=== PATIENT | female | born 1990 | race Two or more races ===

== ENCOUNTER 2018-05-19 14:08 | Emergency (ER) | payer OTHER ==
[2018-05-19] MEDS ORDERED: NS 1,000 ML IV ONE (15:02)
[2018-05-19] MEDS ORDERED: KETOROLAC 30 MG/1 ML SDV IVP ONE (15:02)
[2018-05-19] MEDS ORDERED: ONDANSETRON 4 MG/2 ML VIAL IVP ONE (15:02)
--- NOTE | 2018-05-19 15:05 | EDPHY ---
H & P Stated Complaint: ABD PAIN X 4 DAYS Time Seen by Provider: 05/19/18 14:55 HPI/ROS: CHIEF COMPLAINT: Nausea vomiting diarrhea HISTORY OF PRESENT ILLNESS: Patient is a 27-year-old a female from [place] who was working as an [employer] here. On Thursday and Thursday she developed nausea vomiting and diarrhea. She states that she vomited multiple times. She had very small amounts of blood in her stool. Her symptoms resolved Thursday and Thursday and then returned yesterday evening. She has not had a fever. She denies risk of . No urinary symptoms. No vaginal symptoms. No surgical history. She does complain of mild pain and cramping that is diffuse nonfocal. Severity: Moderate Modifying factors: Seem to relapse REVIEW OF SYSTEMS: Constitutional: denies: chills, fever, recent illness, recent injury EENTM: denies: blurred vision, double vision, nose congestion Respiratory: denies: cough, shortness of breath Cardiac: denies: chest pain, irregular heart rate, lightheadedness, palpitations Gastrointestinal/Abdominal: See HPI Genitourinary: denies: dysuria, frequency, hematuria, pain Musculoskeletal: denies: joint pain, muscle pain Skin: denies: lesions, rash, jaundice, bruising Neurological: denies: headache, numbness, paresthesia, tingling, dizziness, weakness Hematologic/Lymphatic: denies: blood clots, easy bleeding, easy bruising Immunologic/allergic: denies: HIV/AIDS, transplant 10 systems reviewed and negative except as noted EXAM: GENERAL: Well-appearing, well-nourished and in no acute distress. HEAD: Atraumatic, normocephalic. EYES: Pupils equal round and reactive to light, extraocular movements intact, sclera anicteric, conjunctiva are normal. ENT: TMs normal, nares patent, oropharynx clear without exudates. Moist mucous membranes. NECK: Normal range of motion, supple without lymphadenopathy or JVD. LUNGS: Breath sounds clear to auscultation bilaterally and equal. No wheezes rales or rhonchi. HEART: Regular rate and rhythm without murmurs, rubs or gallops. ABDOMEN: Soft, nontender, normoactive bowel sounds. No guarding, no rebound. No masses appreciated. BACK: No CVA tenderness, no spinal tenderness, step-offs or deformities EXTREMITIES: Normal range of motion, no pitting or edema. No clubbing or cyanosis. NEUROLOGICAL: Cranial nerves II through XII grossly intact. Normal speech, normal gait. 5/5 strength, normal movement in all extremities, normal sensation , normal reflexes PSYCH: Normal mood, normal affect. SKIN: Warm, dry, normal turgor, no visible rashes or lesions. Source: Patient Exam Limitations: No limitations - Medical/Surgical History Hx Asthma: No Hx Chronic Respiratory Disease: No Hx Diabetes: No Hx Cardiac Disease: No Hx Renal Disease: No Hx Cirrhosis: No Hx Alcoholism: No Hx HIV/AIDS: No Hx Splenectomy or Spleen Trauma: No Other PMH: denies - Family History Significant Family History: No pertinent family hx - Social History Smoking Status: Never smoked Alcohol Use: None Constitutional: Initial Vital Signs Temperature (C) 37.2 C 05/19/18 14:13 Heart Rate 71 05/19/18 14:13 Respiratory Rate 16 05/19/18 14:13 Blood Pressure 107/88 H 05/19/18 14:13 O2 Sat (%) 100 05/19/18 14:13 O2 Delivery Mode Room Air Allergies/Adverse Reactions: No Known Allergies Allergy (Unverified 05/19/18 14:13) Home Medications: Medication Instructions Recorded Doxylamine Succinate/Vit B6 2 each PO DAILY #7 tablet. 05/19/18 [Ester Ascencio 10-10 mg Tablet] Medical Decision Making - Diagnostics Imaging Results: Imaging Impressions Obstetrics Ultrasound 05/19/18 16:03 Impression: 1. There are 2 fluid-filled structures adjacent to the canal near the uterine fundus, the smallest of which is rounded and measures up to 2.3 mm. This may represent an early gestational sac. The other structure is more oblong in appearance. Recommend serial beta hCGs and short-term follow-up imaging to ensure viable . 2. Likely corpus luteum cyst in the right ovary. 3. Trace free fluid in the pelvis. Findings and recommendations discussed with CHARO OLIVIA at 1715 hour, 2018. Imaging: Discussed imaging studies w/ parts fabricator Radiologist ED Course/Re-evaluation: 3:40 p.m. initially the patient told us that there was no chance she was and then she had her last menstrual period about 1 month ago. Her test however came back positive. With the solar sales representative and assessor I asked her more specifically and she does admit to having intercourse a few weeks ago. She is not exactly sure when. Will send a quantification level. She is not having any of vaginal cramping or bleeding. She states that her menses 1 month ago was normal. She has not been traveling. She arrived here in February. 4:12 p.m. the patient continues to have pain. Will treat with morphine. She asked about options for . I will obtain ultrasound to rule out obvious ectopic but otherwise have her follow up with OBGYN for repeat testing and discussion about options. 5:20 p.m. we discussed the patient's ultrasound. She will follow up with OBGYN in 2 days for repeat quant and likely ultrasound. She will then discuss with them options for versus keeping the . We discussed indications for returning such as fever, intractable pain or vomiting or bleeding. Abdominal exam remains benign. I discussed this plan with Dr. Aguirre who agrees and will follow up. Differential Diagnosis: Partial list of the Differential diagnosis considered include but were not limited to; intrauterine , ectopic , gastroenteritis and although unlikely based on the history and physical exam, I also considered appendicitis, biliary disease volvulus. - Data Points Laboratory Results: Laboratory Results 05/19/18 14:46 05/19/18 14:46 05/19/18 05/19/18 05/19/18 15:10 14:46 14:46 WBC RBC Hgb Hct MCV MCH MCHC RDW Plt Count MPV Neut % (Auto) Lymph % (Auto) [place] % (Auto) Eos % (Auto) Baso % (Auto) Nucleat RBC Rel Count Absolute Neuts (auto) Absolute Lymphs (auto) Absolute Monos (auto) Absolute Eos (auto) Absolute Basos (auto) Absolute Nucleated RBC Immature Gran % Immature Gran # Sodium Potassium Chloride Carbon Dioxide Anion Gap BUN Creatinine Estimated GFR Glucose Calcium Total Bilirubin Conjugated Bilirubin Unconjugated Bilirubin AST ALT Alkaline Phosphatase Total Protein Albumin Lipase Beta HCG, Qual POSITIVE Beta HCG, Quant 503.80 mIU/mL H mIU/mL (0.00-4.83) Urine Color YELLOW Urine Appearance MODERATELY TURBID Urine pH 7.0 (5.0-7.5) Ur Specific [place] 1.019 (1.002-1.030) Urine Protein NEGATIVE (NEGATIVE) Urine Ketones 1+ H (NEGATIVE) Urine Blood NEGATIVE (NEGATIVE) Urine Nitrate NEGATIVE (NEGATIVE) Urine Bilirubin NEGATIVE (NEGATIVE) Urine Urobilinogen NEGATIVE EU EU (0.2-1.0) Ur Leukocyte Esterase NEGATIVE (NEGATIVE) Urine RBC NONE SEEN /hpf /hpf (0-3) Urine WBC 1-3 /hpf /hpf (0-3) Ur Epithelial Cells 2+ /lpf H /lpf (NONE-1+) Urine Bacteria TRACE /hpf H /hpf (NONE SEEN) Urine Mucus TRACE /lpf /lpf (NONE-1+) Urine Glucose NEGATIVE (NEGATIVE) 05/19/18 05/19/18 14:46 14:46 WBC 9.91 10^3/uL H 10^3/uL (3.80-9.50) RBC 4.09 10^6/uL L 10^6/uL (4.18-5.33) Hgb 12.2 g/dL L g/dL (12.6-16.3) Hct 36.3 % L % (38.0-47.0) MCV 88.8 fL fL (81.5-99.8) MCH 29.8 pg pg (27.9-34.1) MCHC 33.6 g/dL g/dL (32.4-36.7) RDW 13.4 % % (11.5-15.2) Plt Count 269 10^3/uL 10^3/uL (150-400) MPV 10.6 fL fL (8.7-11.7) Neut % (Auto) 70.0 % % (39.3-74.2) Lymph % (Auto) 24.8 % % (15.0-45.0) [place] % (Auto) 4.4 % L % (4.5-13.0) Eos % (Auto) 0.3 % L % (0.6-7.6) Baso % (Auto) 0.2 % L % (0.3-1.7) Nucleat RBC Rel Count 0.0 % % (0.0-0.2) Absolute Neuts (auto) 6.93 10^3/uL H 10^3/uL (1.70-6.50) Absolute Lymphs (auto) 2.46 10^3/uL 10^3/uL (1.00-3.00) Absolute Monos (auto) 0.44 10^3/uL 10^3/uL (0.30-0.80) Absolute Eos (auto) 0.03 10^3/uL 10^3/uL (0.03-0.40) Absolute Basos (auto) 0.02 10^3/uL 10^3/uL (0.02-0.10) Absolute Nucleated RBC 0.00 10^3/uL 10^3/uL (0-0.01) Immature Gran % 0.3 % % (0.0-1.1) Immature Gran # 0.03 10^3/uL 10^3/uL (0.00-0.10) Sodium 133 mEq/L L mEq/L (135-145) Potassium 3.5 mEq/L mEq/L (3.5-5.2) Chloride 103 mEq/L mEq/L (97-110) Carbon Dioxide 20 mEq/l L mEq/l (22-31) Anion Gap 10 mEq/L mEq/L (6-14) BUN 6 mg/dL L mg/dL (7-23) Creatinine 0.6 mg/dL mg/dL (0.6-1.0) Estimated GFR > 60 Glucose 97 mg/dL mg/dL (70-100) Calcium 9.3 mg/dL mg/dL (8.5-10.4) Total Bilirubin 0.8 mg/dL mg/dL (0.1-1.4) Conjugated Bilirubin 0.2 mg/dL mg/dL (0.0-0.5) Unconjugated Bilirubin 0.6 mg/dL mg/dL (0.0-1.1) AST 20 IU/L IU/L (14-46) ALT 16 IU/L IU/L (9-52) Alkaline Phosphatase 62 IU/L IU/L (38-126) Total Protein 8.1 g/dL g/dL (6.3-8.2) Albumin 4.6 g/dL g/dL (3.5-5.0) Lipase 110 IU/L IU/L (23-300) Beta HCG, Qual Beta HCG, Quant Urine Color Urine Appearance Urine pH Ur Specific [place] Urine Protein Urine Ketones Urine Blood Urine Nitrate Urine Bilirubin Urine Urobilinogen Ur Leukocyte Esterase Urine RBC Urine WBC Ur Epithelial Cells Urine Bacteria Urine Mucus Urine Glucose Medications Given: Discontinued Medications Acetaminophen (Tylenol) 1,000 mg PO EDNOW ONE Stop: 05/19/18 17:24 Last Admin: 05/19/18 17:26 Dose: 1,000 mg Sodium Chloride (Ns) 1,000 mls @ 0 mls/hr IV EDNOW ONE; Wide Open PRN Reason: Protocol Stop: 05/19/18 15:03 Last Admin: 05/19/18 15:09 Dose: 1,000 mls Ketorolac Tromethamine (Toradol) 15 mg IVP EDNOW ONE Stop: 05/19/18 15:03 Last Admin: 05/19/18 15:09 Dose: 15 mg Morphine Sulfate (Morphine) 6 mg IVP EDNOW ONE Stop: 05/19/18 16:11 Last Admin: 05/19/18 16:16 Dose: 4 mg Ondansetron HCl (Zofran) 4 mg IVP EDNOW ONE Stop: 05/19/18 15:03 Last Admin: 05/19/18 15:09 Dose: 4 mg Departure - Departure Disposition: Home, Routine, Self-Care Clinical Impression: Qualifiers: Weeks of gestation: less than 8 weeks Qualified Code(s): Z3A.01 - Less than 8 weeks gestation of Condition: Fair Instructions: (ED) Additional Instructions: Follow-up with OBGYN in 2 days for repeat blood levels and evaluation. Return to the emergency department if her pain becomes severe or of continued vomiting or fever. Calvin mikayla funmilayo de seguimiento con un GINE[place]GO en 2 mercado para repetir los niveles de frances y la evaluacin. Regrese al Departamento de Emergencia si yee dolor se vuelve nikki o si tiene vmitos continuo o fiebre. Referrals: NONE *PRIMARY CARE P,. [Primary Care Provider] - As per Instructions Joceline Aguirre MD [Medical Doctor] - 1-2 days without fail Prescriptions: Doxylamine Succinate/Vit B6 [Ester Ascencio 10-10 mg Tablet] 2 each PO DAILY #7 tablet. Print Language: Italian
[2018-05-19 15:10] LABS: PLATELET COUNT 269 10^3/uL (150-400)
[2018-05-19] MEDS ORDERED: ACETAMINOPHEN 500 MG TAB PO ONE (17:23)
[2018-05-19 17:50] VITALS: BP 114/78
== END 2018-05-19 17:50 | disposition home or self-care (01) ==
LOC: EDBD 14:08
DX: O21.9 Vomiting of pregnancy, unspecified (principal); O99.281 Endocrine, nutritional and metabolic diseases complicating pregnancy, first trimester; R19.7 Diarrhea, unspecified; E86.9 Volume depletion, unspecified; Z3A.01 Less than 8 weeks gestation of pregnancy
CPT/HCPCS: 96374; J1885; J2270; J2405

== ENCOUNTER 2018-05-21 00:15 | Emergency (ER) | payer OTHER ==
[2018-05-21] MEDS ORDERED: fentaNYL 100 MCG/2 ML INJ IVP ONE (00:47)
[2018-05-21 00:56] LABS: PLATELET COUNT 262 10^3/uL (150-400)
--- NOTE | 2018-05-21 01:50 | EDPHY ---
H & P Stated Complaint: , increasing lower abd pain, recently seen in ED Time Seen by Provider: 05/21/18 00:34 HPI/ROS: Chief Complaint: Pelvic pain HPI: 27-year-old who was recently diagnosed as being . Patient was seen here 2 days ago for abdominal pain. At that time she is noted to be with a quantitative HCG in the 500s. She had a pelvic ultrasound which did not show an IUP but there is a possible gestational sac in the uterus. She is referred for to OBGYN for follow-up. Patient states the pain is significantly worse. Is down low in deep inside. No vaginal bleeding or discharge. No fevers or chills. No nausea or vomiting. Pain is about an 8/ 10. There are no aggravating or alleviating factors. She has not yet seen OBGYN. ROS: 10 systems were reviewed and were negative except those elements noted in the HPI. PMH: Denies Social History: No smoking, no alcohol, no recreational drug use Family History: non-contributory Physical Exam: Gen: Awake, Alert, No Distress HEENT: Nose: no rhinorrhea Eyes: PERRLA, EOMI Mouth: Moist mucosa Neck: Supple, no JVD Chest: nontender, lungs clear to auscultation Heart: S1, S2 normal, no murmur Abd: Soft, moderate lower pelvic tenderness, no guarding Back: no CVA tenderness, no midline tenderness Ext: no edema, non-tender Skin: no rash Neuro: CN II-XII intact, Sensation grossly intact, Strength 5/5 in bilateral upper and lower extremities - Personal History LMP (Females 10-55): Current Tetanus Diphtheria and Acellular Pertussis (TDAP): No - Medical/Surgical History Hx Asthma: No Hx Chronic Respiratory Disease: No Hx Diabetes: No Hx Cardiac Disease: No Hx Renal Disease: No Hx Cirrhosis: No Hx Alcoholism: No Hx HIV/AIDS: No Hx Splenectomy or Spleen Trauma: No Other PMH: denies - Social History Smoking Status: Never smoked Constitutional: Initial Vital Signs Temperature (C) 36.8 C 05/21/18 00:23 Heart Rate 65 05/21/18 00:23 Respiratory Rate 19 05/21/18 00:23 Blood Pressure 128/57 H 05/21/18 00:23 O2 Sat (%) 100 05/21/18 00:23 O2 Delivery Mode Room Air Allergies/Adverse Reactions: No Known Allergies Allergy (Unverified 05/21/18 00:19) Home Medications: Medication Instructions Recorded Doxylamine Succinate/Vit B6 2 each PO DAILY #7 tablet. 05/19/18 [Ester Ascencio 10-10 mg Tablet] Medical Decision Making ED Course/Re-evaluation: Patient's HCG is has increased from 500-900. Repeat ultrasound shows a possible early IUP with no evidence of ectopic at this time but it is too early to tell. Patient's pain is resolved. She has an appointment later this morning with OBGYN. Will discharge with follow up with that appointment. Patient understands that is extremely important that she keep this appointment today. - Data Points Laboratory Results: Laboratory Results 05/21/18 00:38 05/21/18 00:38 05/21/18 05/21/18 00:38 00:38 WBC 9.13 10^3/uL 10^3/uL (3.80-9.50) RBC 4.01 10^6/uL L 10^6/uL (4.18-5.33) Hgb 12.1 g/dL L g/dL (12.6-16.3) Hct 36.4 % L % (38.0-47.0) MCV 90.8 fL fL (81.5-99.8) MCH 30.2 pg pg (27.9-34.1) MCHC 33.2 g/dL g/dL (32.4-36.7) RDW 13.3 % % (11.5-15.2) Plt Count 262 10^3/uL 10^3/uL (150-400) MPV 10.4 fL fL (8.7-11.7) Neut % (Auto) 58.2 % % (39.3-74.2) Lymph % (Auto) 33.7 % % (15.0-45.0) [place] % (Auto) 6.9 % % (4.5-13.0) Eos % (Auto) 0.7 % % (0.6-7.6) Baso % (Auto) 0.2 % L % (0.3-1.7) Nucleat RBC Rel Count 0.0 % % (0.0-0.2) Absolute Neuts (auto) 5.31 10^3/uL 10^3/uL (1.70-6.50) Absolute Lymphs (auto) 3.08 10^3/uL H 10^3/uL (1.00-3.00) Absolute Monos (auto) 0.63 10^3/uL 10^3/uL (0.30-0.80) Absolute Eos (auto) 0.06 10^3/uL 10^3/uL (0.03-0.40) Absolute Basos (auto) 0.02 10^3/uL 10^3/uL (0.02-0.10) Absolute Nucleated RBC 0.00 10^3/uL 10^3/uL (0-0.01) Immature Gran % 0.3 % % (0.0-1.1) Immature Gran # 0.03 10^3/uL 10^3/uL (0.00-0.10) Sodium 136 mEq/L mEq/L (135-145) Potassium 3.4 mEq/L L mEq/L (3.5-5.2) Chloride 107 mEq/L mEq/L (97-110) Carbon Dioxide 19 mEq/l L mEq/l (22-31) Anion Gap 10 mEq/L mEq/L (6-14) BUN 8 mg/dL mg/dL (7-23) Creatinine 0.6 mg/dL mg/dL (0.6-1.0) Estimated GFR > 60 Glucose 92 mg/dL mg/dL (70-100) Calcium 9.3 mg/dL mg/dL (8.5-10.4) Beta HCG, Quant 976.06 mIU/mL H mIU/mL (0.00-4.83) Medications Given: Discontinued Medications Fentanyl (Sublimaze) 50 mcg IVP EDNOW ONE Stop: 05/21/18 00:48 Last Admin: 05/21/18 00:54 Dose: 50 mcg Morphine Sulfate (Morphine) 4 mg IVP ONCE ONE Stop: 05/21/18 01:47 Last Admin: 05/21/18 01:54 Dose: 4 mg Ondansetron HCl (Zofran) 4 mg IVP EDNOW ONE Stop: 05/21/18 01:58 Last Admin: 05/21/18 01:58 Dose: 4 mg Departure - Departure Disposition: Home, Routine, Self-Care Clinical Impression: Threatened miscarriage Condition: Good Instructions: Threatened Miscarriage (ED) Additional Instructions: Follow up with your OBGYN appointment later this morning as scheduled. Referrals: Joceline Aguirre MD [Medical Doctor] - As per Instructions
[2018-05-21] MEDS ORDERED: ONDANSETRON 4 MG/2 ML VIAL ONE (01:55)
[2018-05-21] MEDS ORDERED: ONDANSETRON 4 MG/2 ML VIAL IVP ONE (01:57)
[2018-05-21 04:45] VITALS: BP 114/71
== END 2018-05-21 05:05 | disposition home or self-care (01) ==
DX: O20.0 Threatened abortion (principal)
CPT/HCPCS: 96374; J2270; J2405; J3010